=== PATIENT | male | born 1965 | race Caucasian/White ===

== ENCOUNTER → 2017-01-16 | Outpatient (CLI) | payer OTHER ==
--- NOTE | 2017-01-16 16:46 | DI ---
RIGHT SHOULDER, 01/16/2017 3:41 PM: Clinical History: Acute right shoulder pain. Previous Exam: None at this facility. 3 views are submitted. There is no acute soft tissue, osseous, or joint abnormality. 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 The visualized portions of the right lung and apex are normal. Reading: Mild to moderate arthrosis of the AC joint. The exam is otherwise normal.
== END ==
LOC: RAD 15:43
PROVIDERS: ATTEND Physician Assistant
DX: M25.511 Pain in right shoulder (principal); M19.011 Primary osteoarthritis, right shoulder; X50.0XXA Overexertion from strenuous movement or load, initial encounter
CPT/HCPCS: 73030